=== PATIENT | male | born 1950 | race Caucasian/White ===

== ENCOUNTER 2016-12-16 23:42 | Inpatient (IN) | payer OTHER, MEDICAID ==
[~2016-12-16] VITALS: Ht 162.6 cm; Wt 117.9 kg
[2016-12-16 23:42] VITALS: BP_SYST 136
[2016-12-16] MEDS ORDERED: IPRATROPIUM BROM 0.5 MG/2.5 ML VIAL.NEB (ATROVENT) IH ONE (23:45)
[2016-12-16] MEDS ORDERED: PREDNISONE 20 MG TABLET PO ONE (23:45)
[2016-12-16] MEDS ORDERED: ALBUTEROL SULFATE 0.083% 2.5 MG/3 ML VIAL.NEB IH ONE (23:45)
[2016-12-17 00:54] LABS: BASOPHILS # (AUTO) 0.2 K/uL (0.0-0.2); BASOPHILS % (AUTO) 1.2 % (0.0-2.0); EOSINOPHILS # (AUTO) 0.4 K/uL (0.0-0.4); EOSINOPHILS % (AUTO) 3.3 % (0.0-4.0); HEMOGLOBIN 14.1 g/dL (14.0-18.0); LYMPHOCYTES # (AUTO) 0.5 K/uL (1.0-5.5); LYMPHOCYTES % (AUTO) 3.7 % (20.5-51.5); MEAN CORPUSCULAR HEMOGLOBIN 28 pg (27-31); MEAN CORPUSCULAR HGB CONC 33 % (32-36); MEAN CORPUSCULAR VOLUME 85 fL (79.0-98.0); MONOCYTES # (AUTO) 1.3 K/uL (0.0-1.0); MONOCYTES % (AUTO) 9.5 % (1.7-9.3); NEUTROPHILS # (AUTO) 10.9 K/uL (1.8-7.7); NEUTROPHILS % (AUTO) 82.3 % (40.0-70.0); PLATELET COUNT (AUTO) 210 K/uL (130-430); RED BLOOD CELL COUNT(AUTO) 5.08 MIL/uL (4.2-6.2); RED CELL DISTRIBUTION WIDTH 13.8 % (9.0-15.0); WHITE BLOOD COUNT (AUTO) 13.3 K/uL (4.8-10.8)
[2016-12-17] MEDS ORDERED: AZITHROMYCIN 500 MG in D5W 250 ML IV ONE (01:00)
[2016-12-17] MEDS ORDERED: cefTRIAXone 1 GM IVPB PREMIX 50 ML IV ONE (01:00)
[2016-12-17 01:06] LABS: INR 1.8 (0.80-1.20); PROTHROMBIN TIME 19.5 SECS (9.5-12.5)
[2016-12-17 01:11] LABS: CALCIUM 10.1 mg/dL (8.4-11.0); CREATININE 1.5 mg/dL (0.55-1.30); POTASSIUM 4.8 mmol/L (3.5-5.1)
[2016-12-17 01:18] LABS: ALBUMIN 3.1 g/dL (3.4-4.8); TOTAL BILIRUBIN 0.3 mg/dL (0.0-1.0); TOTAL PROTEIN, SERUM 6.2 g/dL (6.4-8.3)
[2016-12-17] MEDS ORDERED: AZITHROMYCIN 500 MG/VIAL (ZITHROMAX) IV ONE (01:44)
[2016-12-17] MEDS ORDERED: WARF5TAB2 PO (02:08)
[2016-12-17] MEDS ORDERED: GABA-531 PO (02:08)
[2016-12-17] MEDS ORDERED: HYDR-1189 PO (02:08)
[2016-12-17] MEDS ORDERED: TRAZ-126 PO (02:08)
[2016-12-17] MEDS ORDERED: VALS80TA2 PO (02:08)
[2016-12-17] MEDS ORDERED: ALBU2.5V7 INH (02:08)
[2016-12-17] MEDS ORDERED: CLOP75TA2 PO (02:08)
[2016-12-17] MEDS ORDERED: HEPA500014 SUBCUT (02:08)
[2016-12-17] MEDS ORDERED: FLUT1DIS3 INH (02:08)
[2016-12-17] MEDS ORDERED: TAMS0.4C96 PO (02:08)
[2016-12-17] MEDS ORDERED: CARV12.548 PO (02:08)
[2016-12-17] MEDS ORDERED: LIP20 PO (02:08)
[2016-12-17] MEDS ORDERED: GLIP10TA11 PO (02:08)
[2016-12-17] MEDS ORDERED: CAT.1 PO (02:08)
[2016-12-17] MEDS ORDERED: MAGN400O4 PO (02:08)
[2016-12-17] MEDS ORDERED: MILK OF MAGNESIA 30 ML UDC PO PRN (02:30)
[2016-12-17] MEDS ORDERED: ALBUTEROL SULFATE 0.083% 2.5 MG/3 ML VIAL.NEB INH PRN (02:30)
[2016-12-17 02:53] VITALS: BP_SYST 141
[2016-12-17 04:38] VITALS: BP_SYST 141
[2016-12-17] MEDS: INSULIN REGULAR, HUMAN 100 UNITS/ML, 10 ML VIAL (novoLIN R) SUBCUT PRN ×3 (07:18→17:50)
[2016-12-17] MEDS: IPRATROPIUM/ALBUTEROL SULFATE 3 ML AMPUL.NEB INH SCH ×5 (07:41→23:19)
[2016-12-17 08:30] VITALS: BP_SYST 148
[2016-12-17] MEDS: cloNIDine HCL 0.1 MG TABLET PO SCH ×2 (08:44→20:33)
[2016-12-17] MEDS: GABAPENTIN 300 MG CAPSULE PO SCH ×3 (08:45→20:32)
[2016-12-17] MEDS: VALSARTAN 80 MG TABLET (DIOVAN) PO SCH (08:45)
[2016-12-17] MEDS: CARVEDILOL 12.5 MG TABLET (COREG) PO SCH ×2 (08:46→20:33)
[2016-12-17] MEDS: HYDROcodone/ACETAMIN 5-325 MG TAB (NORCO/ VICODIN) PO PRN (08:54)
[2016-12-17] MEDS ORDERED: CLOPIDOGREL BISULFATE 75 MG TABLET PO SCH (09:00)
[2016-12-17] MEDS ORDERED: HEPARIN SODIUM,PORCINE 5000 UNITS/ML VIAL SUBCUT SCH (09:00)
[2016-12-17 10:51] LABS: BLOOD GAS PH 7.354 (7.350-7.450)
[2016-12-17 10:52] LABS: ABG TOTAL HEMOGLOBIN 14.6 G/dL (12.0-18.0); BLOOD GAS BASE EXCESS 4.8 mmol/L (-3.0-3.0); BLOOD O2Hb% 82.9 % (94.0-97.0)
[2016-12-17] MEDS: LEVOFLOXACIN 500 MG/D5W 100 ML IV SCH (10:52)
[2016-12-17 12:00] VITALS: BP_SYST 139
[2016-12-17] MEDS ORDERED: FUROSEMIDE 40 MG/4 ML VIAL IVP ONE (15:30)
[2016-12-17 16:50] VITALS: BP_SYST 108
[2016-12-17 17:48] LABS: BILIRUBIN,URINE NEGATIVE (NEGATIVE); BLOOD, URINE NEGATIVE (NEGATIVE); CLARITY/URINE CLEAR (CLEAR); COLOR,URINE YELLOW (YELLOW); GLUCOSE,URINE 3+ (NEGATIVE); KETONES,URINE NEGATIVE (NEGATIVE); LEUKOCYTE ESTERASE ,URINE NEGATIVE (NEGATIVE); NITRITE, URINE NEGATIVE (NEGATIVE); PH,URINE 6.5 (5.0-8.0); PROTEIN URINE TRACE (NEGATIVE); UROBILINOGEN,URINE 0.2 (0.2-1.0)
[2016-12-17] MEDS: WARFARIN SODIUM 5 MG TABLET PO SCH (17:51)
[2016-12-17 18:15] LABS: BACTERIA,URINE RARE /HPF (None Seen); RBC,URINE NONE SEEN /HPF (0-3); WBC,URINE 0-3 /HPF (0-3)
[2016-12-17 18:16] LABS: MUCUS,URINE None Seen /LPF (None Seen)
[2016-12-17] MEDS: ATORVASTATIN 20 MG TABLET PO SCH (20:32)
[2016-12-17] MEDS: TAMSULOSIN HCL 0.4 MG CAP PO SCH (20:32)
[2016-12-17] MEDS: traZODone HCL 50 MG TABLET (DESYREL) PO SCH (20:32)
[2016-12-18] VITALS: BP_SYST 94
[2016-12-18] MEDS: HYDROcodone/ACETAMIN 5-325 MG TAB (NORCO/ VICODIN) PO PRN ×2 (00:22→11:40)
[2016-12-18] MEDS: IPRATROPIUM/ALBUTEROL SULFATE 3 ML AMPUL.NEB INH SCH ×3 (03:00→11:34)
[2016-12-18 04:30] VITALS: BP_SYST 102
[2016-12-18 06:25] LABS: BASOPHILS # (AUTO) 0.1 K/uL (0.0-0.2); BASOPHILS % (AUTO) 0.5 % (0.0-2.0); EOSINOPHILS # (AUTO) 0.2 K/uL (0.0-0.4); EOSINOPHILS % (AUTO) 1.8 % (0.0-4.0); HEMATOCRIT 39.3 % (36-54); HEMOGLOBIN 12.8 g/dL (14.0-18.0); LYMPHOCYTES % (AUTO) 9.7 % (20.5-51.5); MEAN CORPUSCULAR HEMOGLOBIN 28 pg (27-31); MEAN CORPUSCULAR HGB CONC 32 % (32-36); MEAN CORPUSCULAR VOLUME 85 fL (79.0-98.0); MONOCYTES # (AUTO) 0.9 K/uL (0.0-1.0); PLATELET COUNT (AUTO) 204 K/uL (130-430); RED BLOOD CELL COUNT(AUTO) 4.62 MIL/uL (4.2-6.2); WHITE BLOOD COUNT (AUTO) 10.2 K/uL (4.8-10.8)
[2016-12-18 06:40] LABS: INR 1.4 (0.80-1.20); PROTHROMBIN TIME 15.9 SECS (9.5-12.5)
[2016-12-18 06:55] LABS: CHLORIDE 102 mmol/L (98-107); CREATININE 1.67 mg/dL (0.55-1.30); GLUCOSE 124 mg/dL (70-99); POTASSIUM 3.8 mmol/L (3.5-5.1); SODIUM SERUM 136 mmol/L (136-145); UREA NITROGEN, BLOOD 29 mg/dL (8-21)
[2016-12-18 08:05] LABS: ANION GAP < 3 (5-15); GFR AFRICAN AMERICAN 53 mL/min (>90)
[2016-12-18 08:19] VITALS: BP_SYST 120
[2016-12-18] MEDS: VALSARTAN 80 MG TABLET (DIOVAN) PO SCH (09:25)
[2016-12-18] MEDS: cloNIDine HCL 0.1 MG TABLET PO SCH ×2 (09:26→21:16)
[2016-12-18] MEDS: CARVEDILOL 12.5 MG TABLET (COREG) PO SCH ×2 (09:26→21:17)
[2016-12-18] MEDS: GABAPENTIN 300 MG CAPSULE PO SCH ×3 (09:26→21:17)
[2016-12-18] MEDS: LEVOFLOXACIN 500 MG/D5W 100 ML IV SCH (09:27)
[2016-12-18] MEDS: INSULIN REGULAR, HUMAN 100 UNITS/ML, 10 ML VIAL (novoLIN R) SUBCUT PRN ×3 (11:53→21:21)
[2016-12-18 12:35] VITALS: BP_SYST 124
[2016-12-18 16:43] VITALS: BP_SYST 106
[2016-12-18] MEDS: WARFARIN SODIUM 5 MG TABLET PO SCH (17:27)
[2016-12-18 19:30] VITALS: BP_SYST 143
[2016-12-18] MEDS: IPRATROPIUM BROM 0.5 MG/2.5 ML VIAL.NEB (ATROVENT) INH SCH (20:49)
[2016-12-18] MEDS: ALBUTEROL SULFATE 0.083% 2.5 MG/3 ML VIAL.NEB INH SCH (20:49)
[2016-12-18] MEDS: traZODone HCL 50 MG TABLET (DESYREL) PO SCH (21:17)
[2016-12-18] MEDS: ATORVASTATIN 20 MG TABLET PO SCH (21:17)
[2016-12-18] MEDS: TAMSULOSIN HCL 0.4 MG CAP PO SCH (21:17)
[2016-12-19] VITALS: BP_SYST 140
[2016-12-19] MEDS: HYDROcodone/ACETAMIN 5-325 MG TAB (NORCO/ VICODIN) PO PRN ×2 (00:22→09:00)
[2016-12-19] MEDS: ALBUTEROL SULFATE 0.083% 2.5 MG/3 ML VIAL.NEB INH SCH ×4 (01:00→20:10)
[2016-12-19] MEDS: IPRATROPIUM BROM 0.5 MG/2.5 ML VIAL.NEB (ATROVENT) INH SCH ×4 (01:00→20:10)
[2016-12-19 04:00] VITALS: BP_SYST 111
[2016-12-19 06:42] LABS: INR 1.4 (0.80-1.20); PROTHROMBIN TIME 15.6 SECS (9.5-12.5)
[2016-12-19 07:40] LABS: CALCIUM 10.1 mg/dL (8.4-11.0); CHLORIDE 103 mmol/L (98-107); CREATININE 1.84 mg/dL (0.55-1.30); GLUCOSE 157 mg/dL (70-99); POTASSIUM 4.6 mmol/L (3.5-5.1); SODIUM SERUM 138 mmol/L (136-145); UREA NITROGEN, BLOOD 29 mg/dL (8-21)
[2016-12-19 07:42] LABS: GFR AFRICAN AMERICAN 47 mL/min (>90)
[2016-12-19 07:43] LABS: ANION GAP < 3 (5-15)
[2016-12-19 08:00] VITALS: BP_SYST 132
[2016-12-19] MEDS: cloNIDine HCL 0.1 MG TABLET PO SCH ×2 (08:59→21:43)
[2016-12-19] MEDS: GABAPENTIN 300 MG CAPSULE PO SCH ×3 (08:59→21:42)
[2016-12-19] MEDS: CARVEDILOL 12.5 MG TABLET (COREG) PO SCH ×2 (09:00→21:43)
[2016-12-19] MEDS: VALSARTAN 80 MG TABLET (DIOVAN) PO SCH (09:01)
[2016-12-19] MEDS: LEVOFLOXACIN 500 MG/D5W 100 ML IV SCH (10:11)
[2016-12-19] MEDS: INSULIN REGULAR, HUMAN 100 UNITS/ML, 10 ML VIAL (novoLIN R) SUBCUT PRN ×3 (11:51→21:48)
[2016-12-19 12:00] VITALS: BP_SYST 108
[2016-12-19] MEDS: FUROSEMIDE 100 MG in D5W 90 ML IV SCH (13:32)
[2016-12-19 16:12] VITALS: BP_SYST 109
[2016-12-19] MEDS: WARFARIN SODIUM 5 MG TABLET PO SCH (17:15)
[2016-12-19 20:20] VITALS: BP_SYST 136
[2016-12-19] MEDS: traZODone HCL 50 MG TABLET (DESYREL) PO SCH (21:42)
[2016-12-19] MEDS: TAMSULOSIN HCL 0.4 MG CAP PO SCH (21:42)
[2016-12-19] MEDS: ATORVASTATIN 20 MG TABLET PO SCH (21:42)
[2016-12-20] VITALS (8 sets, daily range): BP systolic 100–126
[2016-12-20] MEDS: HYDROcodone/ACETAMIN 5-325 MG TAB (NORCO/ VICODIN) PO PRN ×2 (00:03→12:08)
[2016-12-20] MEDS: ALBUTEROL SULFATE 0.083% 2.5 MG/3 ML VIAL.NEB INH SCH ×4 (01:21→19:59)
[2016-12-20] MEDS: IPRATROPIUM BROM 0.5 MG/2.5 ML VIAL.NEB (ATROVENT) INH SCH ×4 (01:22→20:00)
[2016-12-20 06:49] LABS: CALCIUM 10.1 mg/dL (8.4-11.0); CHLORIDE 104 mmol/L (98-107); CREATININE 1.77 mg/dL (0.55-1.30); GLUCOSE 147 mg/dL (70-99); POTASSIUM 4.3 mmol/L (3.5-5.1); SODIUM SERUM 136 mmol/L (136-145); UREA NITROGEN, BLOOD 30 mg/dL (8-21)
[2016-12-20 07:00] LABS: ANION GAP < 3 (5-15); GFR AFRICAN AMERICAN 49 mL/min (>90)
[2016-12-20 07:14] LABS: INR 1.4 (0.80-1.20); PROTHROMBIN TIME 15.3 SECS (9.5-12.5)
[2016-12-20] MEDS: CARVEDILOL 12.5 MG TABLET (COREG) PO SCH ×2 (09:51→20:49)
[2016-12-20] MEDS: VALSARTAN 80 MG TABLET (DIOVAN) PO SCH (09:52)
[2016-12-20] MEDS: GABAPENTIN 300 MG CAPSULE PO SCH ×3 (09:52→20:48)
[2016-12-20] MEDS: cloNIDine HCL 0.1 MG TABLET PO SCH ×2 (09:52→20:49)
[2016-12-20] MEDS: LEVOFLOXACIN 500 MG/D5W 100 ML IV SCH (10:30)
[2016-12-20] MEDS: INSULIN REGULAR, HUMAN 100 UNITS/ML, 10 ML VIAL (novoLIN R) SUBCUT PRN ×3 (11:34→20:52)
[2016-12-20] MEDS: FUROSEMIDE 100 MG in D5W 90 ML IV SCH (12:22)
[2016-12-20] MEDS ORDERED: WARFARIN SODIUM 6 MG TABLET PO SCH (18:00)
[2016-12-20] MEDS: traZODone HCL 50 MG TABLET (DESYREL) PO SCH (20:48)
[2016-12-20] MEDS: ATORVASTATIN 20 MG TABLET PO SCH (20:48)
[2016-12-20] MEDS: TAMSULOSIN HCL 0.4 MG CAP PO SCH (20:48)
[2016-12-21] VITALS (8 sets, daily range): BP systolic 87–142
[2016-12-21] MEDS: ALBUTEROL SULFATE 0.083% 2.5 MG/3 ML VIAL.NEB INH SCH ×3 (00:50→13:53)
[2016-12-21] MEDS: IPRATROPIUM BROM 0.5 MG/2.5 ML VIAL.NEB (ATROVENT) INH SCH ×3 (00:51→13:53)
[2016-12-21] MEDS: HYDROcodone/ACETAMIN 5-325 MG TAB (NORCO/ VICODIN) PO PRN ×2 (01:18→09:28)
[2016-12-21] MEDS: INSULIN REGULAR, HUMAN 100 UNITS/ML, 10 ML VIAL (novoLIN R) SUBCUT PRN ×2 (06:09→11:39)
[2016-12-21 06:34] LABS: CREATININE 1.81 mg/dL (0.55-1.30); POTASSIUM 4.1 mmol/L (3.5-5.1)
[2016-12-21 06:43] LABS: INR 1.4 (0.80-1.20); PROTHROMBIN TIME 15.8 SECS (9.5-12.5)
[2016-12-21] MEDS: CARVEDILOL 12.5 MG TABLET (COREG) PO SCH (08:24)
[2016-12-21] MEDS: cloNIDine HCL 0.1 MG TABLET PO SCH (08:24)
[2016-12-21] MEDS: GABAPENTIN 300 MG CAPSULE PO SCH (08:25)
[2016-12-21] MEDS: VALSARTAN 80 MG TABLET (DIOVAN) PO SCH (08:25)
[2016-12-21] MEDS: LEVOFLOXACIN 500 MG/D5W 100 ML IV SCH (10:11)
[2016-12-21] MEDS ORDERED: FURO-149 PO (11:00)
== END 2016-12-21 16:40 | DRG 871 ==
LOC: SED 23:42 → MERGE 12-17 02:09 → STU 12-17 02:09
PROVIDERS: ADMIT General Practice; ATTEND General Practice
DX: A41.9 Sepsis, unspecified organism (principal); J69.0 Pneumonitis due to inhalation of food and vomit; N17.0 Acute kidney failure with tubular necrosis; J96.21 Acute and chronic respiratory failure with hypoxia; E44.0 Moderate protein-calorie malnutrition; J44.0 Chronic obstructive pulmonary disease with (acute) lower respiratory infection; Z68.41 Body mass index [BMI] 40.0-44.9, adult; I50.30 Unspecified diastolic (congestive) heart failure; E11.21 Type 2 diabetes mellitus with diabetic nephropathy; E11.40 Type 2 diabetes mellitus with diabetic neuropathy, unspecified; E11.65 Type 2 diabetes mellitus with hyperglycemia; E78.5 Hyperlipidemia, unspecified; F17.200 Nicotine dependence, unspecified, uncomplicated; G47.33 Obstructive sleep apnea (adult) (pediatric); I11.0 Hypertensive heart disease with heart failure; I25.10 Atherosclerotic heart disease of native coronary artery without angina pectoris; J20.9 Acute bronchitis, unspecified; N40.0 Benign prostatic hyperplasia without lower urinary tract symptoms; F32.9 Major depressive disorder, single episode, unspecified; Z95.1 Presence of aortocoronary bypass graft; Z99.81 Dependence on supplemental oxygen; Z91.018 Allergy to other foods; Z79.899 Other long term (current) drug therapy
CPT/HCPCS: 36415; 36600; 71010; 80048; 80053; 81000-TC; 82803-TC; 82962; 83605; 83880; 84484; 85025; 85610-TC; 85730-TC; 87040-TC; 87081; 93005; 93306; 93970; 94640; 94760; 96365; 97116-GP; 97530-GP; 99285; A6209; J0456; J0696; J1644; J1815; J1940; J1956; J7050; J7060; J7512

== ENCOUNTER 2016-12-28 11:01 | Outpatient (CLI) | payer MEDICAID, OTHER ==
[~2016-12-28 11:01] MED LIST: ALBU2.5V7 INH; CARV12.548 PO; CAT.1 PO; CLOP75TA2 PO; FLUT1DIS3 INH; FURO-149 PO; GABA-531 PO; GLIP10TA11 PO; HEPA500014 SUBCUT; HYDR-1189 PO; LIP20 PO; MAGN400O4 PO; TAMS0.4C96 PO; TRAZ-126 PO; VALS80TA2 PO; WARF5TAB2 PO
== END 2016-12-28 20:22 | disposition home or self-care (01) ==
LOC: EEVIPCON 11:01 → SMI 11:01
DX: R53.1 Weakness (principal); J18.9 Pneumonia, unspecified organism
CPT/HCPCS: 70551